=== PATIENT | male | born 1990 | race African-American/Black ===

== ENCOUNTER 2017-06-19 17:06 | Emergency (ER) | payer OTHER, SELFPAY ==
[2017-06-19 17:50] LABS: Absolute Lymphocytes (CBC) 2.2 K/uL (0.7-4.9); Absolute Monocytes 0.7 K/uL (0.1-1.3); Absolute Neutrophil 2.8 K/uL (1.8-8.0); Basophils % 0.9 % (0-1.3); Eosinophils % 4.3 % (0-4.4); Hematocrit 42.8 % (39.6-49.0); Lymphocytes % 36.7 % (15.3-44.8); MCH 29.2 pg (27.0-35.0); Monocytes % 12.3 % (3.3-12.3); RBC Red Blood Cell Count 4.92 M/uL (4.33-5.43)
[2017-06-19 18:02] LABS: Bicarbonate 27 mEq/L (21-31); Glucose Level 91 mg/dL (65-120); Lipase 15 U/L (22-51); Potassium 3.5 mEq/L (3.6-5.0); Sodium Level 139 mEq/L (135-145)
[2017-06-19 18:08] LABS: ALT/SGPT 43 IU/L (10-60); AST/SGOT 35 IU/L (10-42); Albumin 4.5 g/dL (3.2-5.5); Alkaline Phosphatase 66 IU/L (42-121); Amylase Level 55 U/L (28-100); BUN Blood Urea Nitrogen 11 mg/dL (6-20); Bilirubin Direct 0.1 mg/dL (0-0.2); Bilirubin Total 0.7 mg/dL (0.3-1.2); Glomerular Filtration Rate > 90 mL/min (=/>90); Protein, Total 7.7 g/dL (6.0-8.3)
[2017-06-19 18:38] LABS: Urine Blood NEGATIVE (NEG); Urine Glucose NEGATIVE (NEG); Urine Protein TRACE (NEG); Urine pH 8.5 (5.0-7.0)
--- NOTE | 2017-06-19 19:02 | ER ---
Nurse's Notes [facility] Name: Rodolfo Garcia Age: 26 yrs Sex: Male : 1990 Arrival Date: 06/19/2017 Time: 17:10 Bed 6 Private MD: Diagnosis: Unspecified abdominal pain Presentation: 06/19 17:14 Presenting complaint: Patient states: Right flank pain that radiates to abdomen x 4 hb days. Denies N/V/D/urinary s/s. Transition of care: patient was not received from another setting of care. Onset of symptoms is unknown. Care prior to arrival: None. 17:14 Method Of Arrival: Ambulatory hb 17:14 Acuity: JEAN PAUL 3 hb Historical: - Allergies: 17:16 No Known Allergies; hb - Home Meds: 17:16 None [Active]; hb - PMHx: 17:48 None; sg - PSHx: 17:16 Appendectomy; hb - Immunization history:: Adult Immunizations up to date. - Social history:: Smoking status: Patient/guardian denies using tobacco. Screenin:30 Abuse screen: Denies threats or abuse. Denies injuries from another. Nutritional sg screening: No deficits noted. Tuberculosis screening: No symptoms or risk factors identified. Never had TB. Fall Risk None identified. Assessment: 17:30 General: Appears in no apparent distress. comfortable, well groomed, well developed, sg well nourished, Behavior is calm, cooperative, appropriate for age. Pain: Complains of pain in anterior aspect of right lateral abdomen and right upper quadrant Quality of pain is described as aching. Neuro: Level of Consciousness is awake, alert, obeys commands, Oriented to person, place, time, Moves all extremities. Full function Speech is normal, Facial symmetry appears normal. Cardiovascular: Heart tones S1 S2 present Capillary refill is brisk in bilateral fingers Patient's skin is warm and dry. Chest pain is denied. Respiratory: Airway is patent Respiratory effort is even, unlabored, Respiratory pattern is regular, symmetrical, Breath sounds are clear. GI: Abdomen is round non-distended, Bowel sounds present X 4 quads. Abd is soft X 4 quads Reports upper abdominal pain, normal bowel habits. : No signs and/or symptoms were reported regarding the genitourinary system. EENT: Sclera/Cornea yellow in color per the pt family members. Oral mucosa is moist. Derm: Skin is pink, warm \T\ dry. Musculoskeletal: No signs and/or symptoms reported regarding the musculoskeletal system. 17:48 Reassessment: pt family requesting a liver panel be ran on the pt, d/t yellowing of the sg eyes, informed the ERP will be notified of the pt request, pt and pt family stated understanding. 19:10 General: Appears in no apparent distress. comfortable, Behavior is calm, cooperative, ea appropriate for age. Neuro: Level of Consciousness is awake, alert, obeys commands, Oriented to person, place, time. Cardiovascular: Heart tones S1 S2 present Patient's skin is warm and dry. Respiratory: Airway is patent Respiratory effort is even, unlabored, Respiratory pattern is regular, symmetrical, Breath sounds are clear. GI: Abdomen is non-distended, Bowel sounds present X 4 quads. Abd is soft X 4 quads. : No signs and/or symptoms were reported regarding the genitourinary system. Derm: Skin is pink, warm \T\ dry. Musculoskeletal: No signs and/or symptoms reported regarding the musculoskeletal system. 19:43 Reassessment: Patient and/or family updated on plan of care and expected duration. Pain ea level reassessed. Patient is alert, oriented x 3, equal unlabored respirations, skin warm/dry/pink. Discharge instructions given to patient, verbalized the understanding of instruction. Awaiting for IV NS fluid bolus to complete. Vital Signs: 17:15 BP 129 / 82; Pulse 79; Resp 16; Temp 98; Pulse Ox 100% on R/A; Weight 76.66 kg; Height hb 5 ft. 10 in. (177.80 cm); Pain 7/10; 19:42 BP 122 / 77; Pulse 70; Resp 18; Temp 98(O); Pulse Ox 100% on R/A; ea 17:15 Body Mass Index 24.25 (76.66 kg, 177.80 cm) hb ED Course: 17:10 Patient arrived in ED. sb2 17:15 Triage completed. hb 17:15 Arm band placed on right wrist. hb 17:17 Patricia Abrams [facility]C [facility]. kb 17:17 Willi Mcneil MD is Attending Physician. kb 17:18 Francisco J Carrington RN is Primary Nurse. sg 17:44 Initial lab(s) drawn, by me, sent to lab. Inserted saline lock: 20 gauge in right sg antecubital area, using aseptic technique. Blood collected. 18:28 Urine collected: clean catch specimen, clear, wei colored. jb1 19:15 Patient has correct armband on for positive identification. Bed in low position. Call ea light in reach. Side rails up X 1. 20:18 No provider procedures requiring assistance completed. IV discontinued, intact, ea bleeding controlled, No redness/swelling at site. Pressure dressing applied. Administered Medications: 19:05 Drug: NS 0.9% 1000 ml Route: IV; Rate: 1000 ml; Site: right antecubital; ea 20:17 Follow up: Response: No adverse reaction; IV Status: Completed infusion ea Outcome: 19:01 Discharge ordered by . kb 19:50 Discharge instructions given to patient, Instructed on discharge instructions, follow ea up and referral plans. Demonstrated understanding of instructions, follow-up care. 20:19 Discharged to home ambulatory. ea 20:19 Condition: improved 20:19 Patient left the ED. ea Signatures: Jeremy Hernandes jb1 Patricia Abrams, TELEGRAPH OFFICE MANAGER-C TELEGRAPH OFFICE MANAGER-Ckb Francisco J Carrington, RN RN Jenn Meyers, RN RN Crystal Holman RN RN Domonique Bloom sb2
--- NOTE | 2017-06-19 19:02 | EDPHYS ---
Physician Documentation [facility] Name: Rodolfo Garcia Age: 26 yrs Sex: Male : 1990 Arrival Date: 06/19/2017 Time: 17:10 Bed 6 Private MD: ED Physician Willi Mcneil HPI: 06/19 17:55 This 26 yrs old Black Male presents to ER via Ambulatory with complaints of Abdominal kb Pain. 17:55 The patient presents with abdominal pain mid right/lateral abd. Onset: The kb symptoms/episode began/occurred 3 day(s) ago. The symptoms do not radiate. Associated signs and symptoms: none. The symptoms are described as constant. Modifying factors: The symptoms are alleviated by nothing, the symptoms are aggravated by nothing. Severity of pain: At its worst the pain was mild moderate in the emergency department the pain is unchanged. The patient has not experienced similar symptoms in the past. The patient has not recently seen a physician. Historical: - Allergies: 17:16 No Known Allergies; hb - Home Meds: 17:16 None [Active]; hb - PMHx: 17:48 None; sg - PSHx: 17:16 Appendectomy; hb - Immunization history:: Adult Immunizations up to date. - Social history:: Smoking status: Patient/guardian denies using tobacco. ROS: 17:54 Constitutional: Negative for fever, chills, and weight loss, Cardiovascular: Negative kb for chest pain, palpitations, and edema, Respiratory: Negative for shortness of breath, cough, wheezing, and pleuritic chest pain, Back: Negative for injury and pain, : Negative for injury, bleeding, discharge, and swelling, MS/Extremity: Negative for injury and deformity, Skin: Negative for injury, rash, and discoloration, Neuro: Negative for headache, weakness, numbness, tingling, and seizure. 17:54 Abdomen/GI: Positive for abdominal pain, Negative for nausea, vomiting, and diarrhea, constipation, abdominal cramps, abdominal distension, anorexia. Exam: 17:54 Constitutional: This is a well developed, well nourished patient who is awake, alert, kb and in no acute distress. Head/Face: Normocephalic, atraumatic. ENT: Nares patent. No nasal discharge, no septal abnormalities noted. Tympanic membranes are normal and external auditory canals are clear. Oropharynx with no redness, swelling, or masses, exudates, or evidence of obstruction, uvula midline. Mucous membranes moist. Neck: Trachea midline, no thyromegaly or masses palpated, and no cervical lymphadenopathy. Supple, full range of motion without nuchal rigidity, or vertebral point tenderness. No Meningismus. Chest/axilla: Normal chest wall appearance and motion. Nontender with no deformity. No lesions are appreciated. Cardiovascular: Regular rate and rhythm with a normal S1 and S2. No gallops, murmurs, or rubs. Normal PMI, no JVD. No pulse deficits. Respiratory: Lungs have equal breath sounds bilaterally, clear to auscultation and percussion. No rales, rhonchi or wheezes noted. No increased work of breathing, no retractions or nasal flaring. Abdomen/GI: Soft, non-tender, with normal bowel sounds. No distension or tympany. No guarding or rebound. No evidence of tenderness throughout. Skin: Warm, dry with normal turgor. Normal color with no rashes, no lesions, and no evidence of cellulitis. MS/ Extremity: Pulses equal, no cyanosis. Neurovascular intact. Full, normal range of motion. Neuro: Awake and alert, GCS 15, oriented to person, place, time, and situation. Cranial nerves II-XII grossly intact. Motor strength 5/5 in all extremities. Sensory grossly intact. Cerebellar exam normal. Normal gait. Vital Signs: 17:15 BP 129 / 82; Pulse 79; Resp 16; Temp 98; Pulse Ox 100% on R/A; Weight 76.66 kg; Height hb 5 ft. 10 in. (177.80 cm); Pain 7/10; 19:42 BP 122 / 77; Pulse 70; Resp 18; Temp 98(O); Pulse Ox 100% on R/A; ea 17:15 Body Mass Index 24.25 (76.66 kg, 177.80 cm) hb MDM: 17:17 Patient medically screened. kb 17:54 Data reviewed: vital signs, nurses notes. Data interpreted: Pulse oximetry: on room air kb is 100 %. Interpretation: normal. 18:32 Counseling: I had a detailed discussion with the patient and/or guardian regarding: the kb historical points, exam findings, and any diagnostic results supporting the discharge/admit diagnosis, lab results, the need for outpatient follow up, a family practitioner, to return to the emergency department if symptoms worsen or persist or if there are any questions or concerns that arise at home. 06/19 17:21 Order name: Amylase, Serum; Complete Time: 18:09 kb 06/19 17:21 Order name: Basic Metabolic Panel; Complete Time: 18:09 kb 06/19 17:21 Order name: CBC with Diff; Complete Time: 18:00 kb 06/19 17:21 Order name: Hepatic Function; Complete Time: 18:09 kb 06/19 17:21 Order name: Lipase; Complete Time: 18:09 kb 06/19 18:31 Order name: Urine Dipstick--Ancillary (enter results); Complete Time: 18:41 bd 06/19 17:21 Order name: IV Saline Lock; Complete Time: 17:49 kb 06/19 17:21 Order name: Labs collected and sent; Complete Time: 17:49 kb 06/19 17:21 Order name: Urine Dipstick-Ancillary (obtain specimen); Complete Time: 18:29 kb Administered Medications: 19:05 Drug: NS 0.9% 1000 ml Route: IV; Rate: 1000 ml; Site: right antecubital; ea 20:17 Follow up: Response: No adverse reaction; IV Status: Completed infusion ea Disposition: 06/20 06:50 Co-signature as Attending Physician, Willi Mcneil MD I agree with the assessment and reji plan of care. Disposition: 06/19/17 19:01 Discharged to Home. Impression: Unspecified abdominal pain. - Condition is Stable. - Discharge Instructions: Abdominal Pain, Adult, [id number]. - Medication Reconciliation Form, Thank You Letter, Antibiotic Education, Prescription Opioid Use form. - Follow up: Private Physician; When: 2 - 3 days; Reason: Recheck today's complaints, Continuance of care, Re-evaluation by your physician. Follow up: Emergency Department; When: As needed; Reason: Worsening of condition. Signatures: Dispatcher [employer] Patricia Jiang, FLOYD-C FLOYD-Francisc oJ Floyd, RN Willi Capone MD MD cha Baxter, Heather, RN Crystal Heredia RN RN ea
[2017-06-19] MEDS ORDERED: NA CHLORIDE 0.9% 1,000 ML ONE (19:20)
== END 2017-06-19 20:19 | disposition home or self-care (01) ==
LOC: ER 17:06
DX: R10.9 Unspecified abdominal pain (principal)
CPT/HCPCS: 36415; 80048; 80076; 81003; 82150; 83690; 85025; 96360; 99283; J7030

== ENCOUNTER 2022-03-14 13:40 | Emergency (ER) | payer SELFPAY ==
[2022-03-14] MEDS ORDERED: KETOROLAC 30 MG/ML INJ ONE (14:10)
--- NOTE | 2022-03-14 14:32 | RAD REPORT ---
EXAM DESCRIPTION: CT - Stone Protocol - 03/14/2022 2:19 pm CLINICAL HISTORY: Abdominal pain. Right lower quadrant pain COMPARISON: None. TECHNIQUE: Computed axial tomography of the abdomen pelvis was obtained without oral or IV contrast. Lack of IV and oral contrast limits evaluation of solid organs, appendix, bowel, and vessels. Sheridan l reformatted images were obtained and reviewed. All CT scans are performed using dose optimization technique as appropriate and may include automated exposure control or mA/KV adjustment according to patient size. FINDINGS: A renal calculus is not seen. An ureteral calculus is not noted. A bladder calculus is not present. The liver, spleen, pancreas and adrenals appear grossly normal There is no evidence of diverticulitis. Small umbilical hernia IMPRESSION: Negative for a genitourinary calculus
[2022-03-14 14:38] LABS: Urine Blood Negative (Negative); Urine Glucose Negative (Negative); Urine Protein Negative (Negative); Urine Specific Gravity 1.025 (1.005-1.030)
[2022-03-14 15:51] LABS: Calcium Oxalate Crystals- Ur Few /HPF (None Seen); Urine Bacteria <20 /HPF (<20); Urine Mucus Slight /HPF (None Seen); Urine RBC <5 /HPF (None Seen)
--- NOTE | 2022-03-14 15:58 | EDPHYS ---
Physician Documentation [facility] Name: Rodolfo Garcia Age: 31 yrs Sex: Male : 1990 Arrival Date: 03/14/2022 Time: 13:43 Bed 13 Private MD: ED Physician Shaji Wilburn HPI: 03/14 14:28 This 31 yrs old Black Male presents to ER via Ambulatory with complaints of Flank Pain. snw 14:28 The patient presents with abdominal pain right lower quadrant. Onset: The snw symptoms/episode began/occurred 1 week(s) ago, and became persistent. The symptoms do not radiate. Associated signs and symptoms: none. The symptoms are described as achy, waxing/waning. Severity of pain: At its worst the pain was moderate in the emergency department the pain is unchanged. The patient has not experienced similar symptoms in the past. The patient has not recently seen a physician. Historical: - Allergies: 13:53 No Known Allergies; aa5 - PMHx: 13:53 None; aa5 - PSHx: 13:53 Appendectomy; aa5 - Immunization history:: Adult Immunizations unknown. - Social history:: Smoking status: Reported history of juuling and/or vaping. ROS: 14:27 Constitutional: Negative for fever, chills, and weight loss, Eyes: Negative for injury, snw pain, redness, and discharge, ENT: Negative for injury, pain, and discharge, Neck: Negative for injury, pain, and swelling, Cardiovascular: Negative for chest pain, palpitations, and edema, Respiratory: Negative for shortness of breath, cough, wheezing, and pleuritic chest pain, Back: Negative for injury and pain, : Negative for injury, bleeding, discharge, and swelling, MS/Extremity: Negative for injury and deformity, Skin: Negative for injury, rash, and discoloration, Neuro: Negative for headache, weakness, numbness, tingling, and seizure, Psych: Negative for depression, anxiety, suicide ideation, homicidal ideation, and hallucinations. 14:27 Abdomen/GI: Positive for abdominal pain, of the right lower quadrant, Negative for nausea, vomiting, and diarrhea, constipation, abdominal distension, anorexia, hematemesis, black/tarry stool, rectal bleeding. Exam: 14:26 Constitutional: This is a well developed, well nourished patient who is awake, alert, snw and in no acute distress. Head/Face: Normocephalic, atraumatic. Eyes: Pupils equal round and reactive to light, extra-ocular motions intact. Lids and lashes normal. Conjunctiva and sclera are non-icteric and not injected. Cornea within normal limits. Periorbital areas with no swelling, redness, or edema. ENT: Nares patent. No nasal discharge, no septal abnormalities noted. Tympanic membranes are normal and external auditory canals are clear. Oropharynx with no redness, swelling, or masses, exudates, or evidence of obstruction, uvula midline. Mucous membranes moist. Neck: Trachea midline, no thyromegaly or masses palpated, and no cervical lymphadenopathy. Supple, full range of motion without nuchal rigidity, or vertebral point tenderness. No Meningismus. Chest/axilla: Normal chest wall appearance and motion. Nontender with no deformity. No lesions are appreciated. Cardiovascular: Regular rate and rhythm with a normal S1 and S2. No gallops, murmurs, or rubs. Normal PMI, no JVD. No pulse deficits. Respiratory: Lungs have equal breath sounds bilaterally, clear to auscultation and percussion. No rales, rhonchi or wheezes noted. No increased work of breathing, no retractions or nasal flaring. Back: No spinal tenderness. No costovertebral tenderness. Full range of motion. Skin: Warm, dry with normal turgor. Normal color with no rashes, no lesions, and no evidence of cellulitis. MS/ Extremity: Pulses equal, no cyanosis. Neurovascular intact. Full, normal range of motion. Neuro: Awake and alert, GCS 15, oriented to person, place, time, and situation. Cranial nerves II-XII grossly intact. Motor strength 5/5 in all extremities. Sensory grossly intact. Cerebellar exam normal. Normal gait. Psych: Awake, alert, with orientation to person, place and time. Behavior, mood, and affect are within normal limits. 14:26 Abdomen/GI: Inspection: abdomen appears normal, Bowel sounds: normal, Palpation: mild abdominal tenderness, moderate abdominal tenderness, in the right lower quadrant, pt has had an appendectomy at age 4. Vital Signs: 13:53 BP 133 / 88; Pulse 76; Resp 16 S; Temp 98.2(O); Pulse Ox 100% on R/A; Weight 74.84 kg aa5 (M); 16:25 BP 127 / 78; Pulse 79; Resp 17; Pulse Ox 99% ; bp MDM: 14:00 Patient medically screened. snw 15:57 Data reviewed: vital signs, nurses notes. Data interpreted: Pulse oximetry: on room air snw is 100 %. Interpretation: normal. Counseling: I had a detailed discussion with the patient and/or guardian regarding: the historical points, exam findings, and any diagnostic results supporting the discharge/admit diagnosis, lab results, radiology results, the need for outpatient follow up, to return to the emergency department if symptoms worsen or persist or if there are any questions or concerns that arise at home. Special discussion: Based on the history and exam findings, there is no indication for further emergent testing or inpatient evaluation. I discussed with the patient/guardian the need to see the primary care provider for further evaluation of the symptoms. 03/14 14:05 Order name: Urine Microscopic Only; Complete Time: 15:56 snw 03/14 14:39 Order name: Urine Dipstick-Ancillary; Complete Time: 14:43 EDMS 03/14 14:05 Order name: CT Stone Protocol; Complete Time: 14:38 snw 03/14 14:05 Order name: Urine Dipstick-Ancillary (obtain specimen); Complete Time: 15:03 snw Administered Medications: 14:11 Drug: Ketorolac 30 mg Route: IM; Site: right gluteus; aa5 16:26 Follow up: Response: No adverse reaction bp Disposition: 03/15 12:30 Co-signature as Attending Physician, Shaji Wilburn MD I agree with the assessment and rt plan of care. Disposition Summary: 03/14/22 15:57 Discharge Ordered Location: Home snw Condition: Stable snw Diagnosis - Lower abdominal pain, unspecified snw Followup: snw - With: Emergency Department - When: As needed - Reason: Worsening of condition Followup: snw - With: Private Physician - When: 2 - 3 days - Reason: Recheck today's complaints, Continuance of care, Re-evaluation by your physician Discharge Instructions: - Discharge Summary Sheet snw - Abdominal Pain, Adult snw - Gas and Gas Pains, Pediatric snw - [place] Diet snw Forms: - Medication Reconciliation Form snw - Thank You Letter snw - Antibiotic Education snw - Prescription Opioid Use snw Prescriptions: - Diclofenac Sodium 75 mg Oral Tablet Sustained Release - take 1 tablet by ORAL route 2 times per day; 30 tablet; Refills: 0, Product snw Selection Permitted Signatures: Dispatcher [employer] Nakita Askew FNP-C PACKAGING DESIGNER-Csnw Lexie Lam RN RN aa5 Shaji Wilburn MD MD rt Shawn Varela RN bp
--- NOTE | 2022-03-14 15:58 | ER ---
Nurse's Notes [facility] Name: Rodolfo Garcia Age: 31 yrs Sex: Male : 1990 Arrival Date: 03/14/2022 Time: 13:43 Bed 13 Private MD: Diagnosis: Lower abdominal pain, unspecified Presentation: 03/14 13:53 Chief complaint: Patient states: Right flank pain that began 2 weeks ago and it's aa5 intermittent. Denies any urinary complaints or any other complaints. Coronavirus screen: At this time, the client does not indicate any symptoms associated with coronavirus-19. Ebola Screen: Patient denies travel to an Ebola-affected area in the 21 days before illness onset. Initial Sepsis Screen: Does the patient meet any 2 criteria? No. Patient's initial sepsis screen is negative. Does the patient have a suspected source of infection? No. Patient's initial sepsis screen is negative. Risk Assessment: Do you want to hurt yourself or someone else? Patient reports no desire to harm self or others. Onset of symptoms was February 2022. 13:53 Method Of Arrival: Ambulatory aa5 13:53 Acuity: JEAN PAUL 3 aa5 Triage Assessment: 15:15 General: Appears in no apparent distress. comfortable, Behavior is calm, cooperative, bp appropriate for age. Pain: Complains of pain in right lower quadrant. EENT: No deficits noted. Neuro: No deficits noted. Cardiovascular: No deficits noted. Respiratory: No deficits noted. GI: No signs and/or symptoms were reported involving the gastrointestinal system. : Reports pain in right flank(s). Derm: No deficits noted. Musculoskeletal: No deficits noted. Historical: - Allergies: 13:53 No Known Allergies; aa5 - PMHx: 13:53 None; aa5 - PSHx: 13:53 Appendectomy; aa5 - Immunization history:: Adult Immunizations unknown. - Social history:: Smoking status: Reported history of juuling and/or vaping. Screenin:15 [facility] ED Fall Risk Assessment (Adult) History of falling in the last 3 months, bp including since admission No falls in past 3 months (0 pts). Abuse screen: Denies threats or abuse. Denies injuries from another. Nutritional screening: No deficits noted. Tuberculosis screening: No symptoms or risk factors identified. Assessment: 14:13 Reassessment: Pt to CT via wheelchair . aa5 15:15 General: PT MOVED TO HOLDING AREA. bp 16:25 Reassessment: PT DC HOME AMBULATORY, DX WITH LOWER ABDOMINAL PAIN. bp Vital Signs: 13:53 BP 133 / 88; Pulse 76; Resp 16 S; Temp 98.2(O); Pulse Ox 100% on R/A; Weight 74.84 kg aa5 (M); 16:25 BP 127 / 78; Pulse 79; Resp 17; Pulse Ox 99% ; bp ED Course: 13:43 Patient arrived in ED. rg4 13:53 Arm band placed on. aa5 13:55 Triage completed. aa5 13:59 Nakita Bryson FNP-C [facility]. snw 13:59 hSaji Wilburn MD is Attending Physician. snw 14:21 CT Stone Protocol In Process Unspecified. EDMS 15:15 Patient has correct armband on for positive identification. Bed in low position. Call bp light in reach. Side rails up X2. 15:37 Shawn Varela, RN is Primary Nurse. bp 16:25 No provider procedures requiring assistance completed. Patient did not have IV access bp during this emergency room visit. Administered Medications: 14:11 Drug: Ketorolac 30 mg Route: IM; Site: right gluteus; aa5 16:26 Follow up: Response: No adverse reaction bp Medication: 15:15 VIS not applicable for this client. bp Outcome: 15:57 Discharge ordered by . snw 16:25 Discharged to home ambulatory, with family. bp 16:25 Condition: stable 16:25 Discharge instructions given to patient, Instructed on discharge instructions, follow up and referral plans. medication usage, Demonstrated understanding of instructions, follow-up care, medications, Prescriptions given X 1. 16:26 Patient left the ED. bp Signatures: Dispatcher [employer] EDMS Nakita Bryson FNP-C MINI SHIFTER-[place] Lexie Lam, RN RN aa5 Nataliya Logan rg4 Shawn Varela, DELANO RN bp
[2022-03-14 16:31] VITALS: TEMP 98.2
[2022-03-14 16:32] VITALS: BP 127/78; O2SAT 99
== END 2022-03-14 16:26 | disposition home or self-care (01) ==
LOC: ER 13:40
DX: R10.31 Right lower quadrant pain (principal)
CPT/HCPCS: 74176; 76377; 81003; 81015

== ENCOUNTER 2023-07-03 15:17 | Emergency (ER) | payer SELFPAY ==
[2023-07-03] MEDS ORDERED: FAMOTIDINE 20 MG/2 ML VIAL IV ONE (17:06)
[2023-07-03] MEDS ORDERED: NA CHLORIDE 0.9% 1,000 ML ONE (17:06)
--- NOTE | 2023-07-03 17:42 | RAD REPORT ---
EXAM DESCRIPTION: US - Abdomen Exam Limited - 07/03/2023 5:08 pm CLINICAL HISTORY: Abdominal pain. COMPARISON: None. FINDINGS: The gallbladder wall is not thickened. A gallstone is not seen. The biliary tree is normal caliber. IMPRESSION: Unremarkable gallbladder ultrasound.
[2023-07-03 17:45] LABS: Absolute Basophils 0.1 K/uL (0-0.5); Absolute Eosinophils 0.3 K/uL (0-0.5); Absolute Lymphocytes (CBC) 1.7 K/uL (0.7-4.9); Absolute Monocytes 0.7 K/uL (0.1-1.3); Absolute Neutrophil 3.9 K/uL (1.8-8.0); Eosinophils % 4.4 % (0-4.4); Hematocrit 44.4 % (39.6-49.0); Hemoglobin 14.7 g/dL (13.6-17.9); Lymphocytes % 25.4 % (15.3-44.8); MCH 29.8 pg (27.0-35.0); MCV 90.3 fL (80-100); MPV 8.6 fL (7.6-11.3); Monocytes % 10.5 % (3.3-12.3); Neutrophils % 58.7 % (41.7-73.7); Platelets 227 thou/uL (152-406); RBC Red Blood Cell Count 4.92 M/uL (4.33-5.43); Red Cell Distribution Width 13.9 % (12.1-15.2)
[2023-07-03 18:11] LABS: Albumin 4.1 g/dL (3.4-5.0); Albumin/Globulin Ratio 1.1 (1.1-1.8); Anion Gap 6.7 mEq/L (5.0-15.0); Bilirubin Total 0.3 mg/dL (0.2-1.0); Globulin 3.9 g/dL (2.3-3.5); Potassium 3.7 mEq/L (3.5-5.1)
--- NOTE | 2023-07-03 18:33 | ER ---
Nurse's Notes [facility] Name: Rodolfo Garcia Age: 32 yrs Sex: Male : 1990 Arrival Date: 07/03/2023 Time: 15:17 Bed 2 Private MD: Diagnosis: Upper abdominal pain, unspecified Presentation: 07/02 15:44 Chief complaint: Patient states: Abdominal pain on/off for about a month. Denies nj1 nausea, vomiting diarrhea, and fever. Coronavirus screen: Vaccine status: Patient reports being unvaccinated. Ebola Screen: Patient denies travel to an Ebola-affected area in the 21 days before illness onset. Initial Sepsis Screen: Does the patient meet any 2 criteria? No. Patient's initial sepsis screen is negative. Does the patient have a suspected source of infection? No. Patient's initial sepsis screen is negative. Risk Assessment: Do you want to hurt yourself or someone else? Patient reports no desire to harm self or others. Onset of symptoms was May 2023. 15:44 Method Of Arrival: Ambulatory [facility] 15:44 Acuity: JEAN PAUL 3 nj1 Triage Assessment: 15:46 General: Appears in no apparent distress. comfortable, Behavior is calm, cooperative, nj1 appropriate for age. Pain: Complains of pain in abdomen Pain currently is 6 out of 10 on a pain scale. GI: Reports upper abdominal pain, Patient currently denies diarrhea, nausea, vomiting. Historical: - Allergies: 15:46 No Known Allergies; nj1 - PMHx: 15:46 None; nj1 - PSHx: 15:46 Appendectomy; nj1 - Immunization history:: Client reports having NOT received the Covid vaccine. - Infectious Disease History:: Denies. - Social history:: Smoking status: Patient reports the use of cigarette tobacco products, smokes one-half pack cigarettes per day. Screenin:53 [facility] ED Fall Risk Assessment (Adult) History of falling in the last 3 months, ph including since admission No falls in past 3 months (0 pts) Confusion or Disorientation No (0 pts) Intoxicated or Sedated No (0 pts) Impaired Gait No (0 pts) Mobility Assist Device Used No (0 pt) Altered Elimination No (0 pt) Score/Fall Risk Level 0 - 2 = Low Risk Oriented to surroundings, Maintained a safe environment, Hourly rounding (assess needs \T\ fall precautionary measures) done. Abuse screen: Denies threats or abuse. Denies injuries from another. Nutritional screening: No deficits noted. Tuberculosis screening: No symptoms or risk factors identified. Assessment: 15:00 General: Appears in no apparent distress. comfortable, Behavior is calm, cooperative, ph appropriate for age. Pain: Complains of pain in abdomen. Neuro: Level of Consciousness is awake, alert, obeys commands, Oriented to person, place, time, situation. Cardiovascular: Capillary refill < 3 seconds in bilateral fingers Patient's skin is warm and dry. Respiratory: Airway is patent Respiratory effort is even, unlabored. GI: Abd is soft and non tender X 4 quads. Reports upper abdominal pain, Patient currently denies diarrhea, nausea, vomiting. Derm: Skin is pink, warm \T\ dry. Musculoskeletal: Range of motion: intact in all extremities. Vital Signs: 15:44 BP 142 / 85; Pulse 77; Resp 18; Temp 97(TE); Pulse Ox 100% ; Weight 72.57 kg; Height 5 nj ft. 9 in. ; Pain 6/10; 17:30 BP 132 / 78; Pulse 76; Resp 18; Pulse Ox 99% on R/A; ph 19:12 BP 122 / 78; Pulse 72; Resp 18; Temp 98; Pulse Ox 99% on R/A; ph 15:44 Body Mass Index 23.63 (72.57 kg, 175.26 cm) al1 15:44 Pain Scale: Adult [facility] ED Course: 15:19 Patient arrived in ED. mr 15:22 [facility]C [facility] kb 15:22 Freddy Boss MD is Attending Physician. kb 15:46 Triage completed. nj1 15:46 Arm band placed on right wrist. nj1 16:21 Lorenza Ortiz, DELANO is Primary Nurse. ph 17:10 Abdomen Limited US In Process Unspecified. EDMS 17:30 Initial lab(s) drawn, by me, sent to lab. Inserted saline lock: 22 gauge in right ph antecubital area, using aseptic technique. Blood collected. 17:59 Patient has correct armband on for positive identification. Bed in low position. Call light in reach. Side rails up X 1. Pulse ox on. NIBP on. Door closed. Noise minimized. Warm blanket given. 18:00 No provider procedures requiring assistance completed. ph 19:12 IV discontinued, intact, bleeding controlled, No redness/swelling at site. Pressure ph dressing applied. Administered Medications: 17:51 Drug: NS 0.9% IV 1000 ml IV at 1 bolus Per protocol; 1000 mL bolus Route: IV; Rate: 1 ph bolus; Site: right antecubital; 18:16 Follow up: Response: No adverse reaction; IV Status: Completed infusion; IV Intake: ph 1000ml 17:52 Drug: Famotidine IVP 20 mg IVP once; dilute with 10 mL 0.9% NaCl; give over 2 minutes ph Route: IVP; Site: right antecubital; 18:16 Follow up: Response: No adverse reaction ph Medication: 17:59 VIS not applicable for this client. ph Intake: 18:16 IV: 1000ml; Total: 1000ml. ph Outcome: 18:32 Discharge ordered by . kb 19:12 Discharged to home ambulatory, ph 19:12 Condition: good 19:12 Discharge instructions given to patient, Instructed on discharge instructions, follow up and referral plans. Demonstrated understanding of instructions, follow-up care, 19:12 Patient left the ED. ph Signatures: Dispatcher [employer] EDMS Patricia Abrams, RESIDENTIAL SALES MANAGER-C RESIDENTIAL SALES MANAGER-Ckb Corie Paul, Reg Reg mr Lorenza Ortiz RN RN Anamika Deleon RN RN nj1 Corrections: (The following items were deleted from the chart) 15:47 15:46 Pain: Complains of pain in abdomen nj1 nj1
--- NOTE | 2023-07-03 18:33 | EDPHYS ---
Physician Documentation [facility] Name: Rodolfo Garcia Age: 32 yrs Sex: Male : 1990 Arrival Date: 07/03/2023 Time: 15:17 Bed 2 Private MD: ED Physician Freddy Boss HPI: 07/02 15:44 This 32 yrs old Black Male presents to ER via Unassigned with complaints of Abdominal kb Pain. 15:44 Pt is a 32 year old male who presents for abd pain that started one month ago. States kb the pain to center of abd started one month ago, but he has had right abd pain intermittently for one year. Denies n/v/d, fever, urinary symptoms. States pain got worse today which prompted a visit to the ED. . Historical: - Allergies: 15:46 No Known Allergies; nj1 - PMHx: 15:46 None; nj1 - PSHx: 15:46 Appendectomy; nj1 - Immunization history:: Client reports having NOT received the Covid vaccine. - Infectious Disease History:: Denies. - Social history:: Smoking status: Patient reports the use of cigarette tobacco products, smokes one-half pack cigarettes per day. ROS: 15:44 Constitutional: As per HPI kb Exam: 15:44 Constitutional: This is a well developed, well nourished patient who is awake, alert, kb and in no acute distress. Head/Face: Normocephalic, atraumatic. ENT: Moist Mucous membranes Cardiovascular: Regular rate Respiratory: Respirations even and unlabored. No increased work of breathing. Talking in full sentences Skin: Warm, dry with normal turgor. Normal color. MS/ Extremity: Pulses equal, no cyanosis. Neurovascular intact. Full, normal range of motion. Neuro: Awake and alert, GCS 15, oriented to person, place, time, and situation. Moves all extremities. Normal gait. 15:44 Abdomen/GI: Inspection: abdomen appears normal, Bowel sounds: normal, Palpation: soft, in all quadrants, mild abdominal tenderness, in the right upper quadrant and left upper quadrant, Vital Signs: 15:44 BP 142 / 85; Pulse 77; Resp 18; Temp 97(TE); Pulse Ox 100% ; Weight 72.57 kg; Height 5 nj1 ft. 9 in. ; Pain 6/10; 17:30 BP 132 / 78; Pulse 76; Resp 18; Pulse Ox 99% on R/A; ph 19:12 BP 122 / 78; Pulse 72; Resp 18; Temp 98; Pulse Ox 99% on R/A; ph 15:44 Body Mass Index 23.63 (72.57 kg, 175.26 cm) [facility] 15:44 Pain Scale: Adult nj1 MDM: 15:22 Patient medically screened. kb 18:31 Differential diagnosis: cholecystitis, Cholelithiasis, gastritis, gastroesophageal kb reflux disease, non-specific abd pain, pancreatitis. Data reviewed: vital signs, nurses notes. Counseling: I had a detailed discussion with the patient and/or guardian regarding the historical points, exam findings, and any diagnostic results supporting the discharge/admit diagnosis, lab results, radiology results, the need for outpatient follow up, a family practitioner, to return to the emergency department if symptoms worsen or persist or if there are any questions or concerns that arise at home. 07/02 15:47 Order name: CBC with Diff; Complete Time: 17:50 kb 07/02 15:47 Order name: CMP; Complete Time: 18:11 kb 07/02 15:47 Order name: Lipase; Complete Time: 18:11 kb 07/02 15:47 Order name: Abdomen Limited US; Complete Time: 17:45 kb 07/02 15:47 Order name: IV Saline Lock; Complete Time: 17:51 kb 07/02 15:47 Order name: Labs collected and sent; Complete Time: 17:51 kb Administered Medications: 17:51 Drug: NS 0.9% IV 1000 ml IV at 1 bolus Per protocol; 1000 mL bolus Route: IV; Rate: 1 ph bolus; Site: right antecubital; 18:16 Follow up: Response: No adverse reaction; IV Status: Completed infusion; IV Intake: ph 1000ml 17:52 Drug: Famotidine IVP 20 mg IVP once; dilute with 10 mL 0.9% NaCl; give over 2 minutes ph Route: IVP; Site: right antecubital; 18:16 Follow up: Response: No adverse reaction ph Disposition Summary: 07/03/23 18:32 Discharge Ordered Notes: Location: Home kb Condition: Stable kb Diagnosis - Upper abdominal pain, unspecified kb Followup: kb - With: Emergency Department - When: As needed - Reason: Worsening of condition Followup: kb - With: Private Physician - When: 2 - 3 days - Reason: Recheck today's complaints, Continuance of care, Re-evaluation by your physician Discharge Instructions: - Discharge Summary Sheet kb - Abdominal Pain, Adult, [id number] kb Forms: - Medication Reconciliation Form kb - Thank You Letter kb - Antibiotic Education kb - Prescription Opioid Use kb - Patient Portal Instructions kb - Leadership Thank You Letter kb Signatures: Dispatcher [employer] Patricia Jiang, GAY BARRIENTOS-Lorenza Leiva, RN RN Anamika Deleon RN RN nj1
[2023-07-03 22:12] VITALS: BP 122/78; TEMP 98; O2SAT 99
== END 2023-07-03 19:12 | disposition home or self-care (01) ==
LOC: ER 15:17
DX: R10.11 Right upper quadrant pain (principal)
CPT/HCPCS: 36415; 76705; 80053; 83690; 85025; J7030